=== PATIENT | female | born 1990 | race American Indian/Alaskan Native ===

== ENCOUNTER 2018-01-26 17:23 | Emergency (ER) | payer OTHER ==
[2018-01-26 18:53] VITALS: RESP 18; BMI 21.4
[2018-01-26] MEDS ORDERED: Methocarbamol 500 MG Tab PO STA (19:03)
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
[2018-01-26 20:11] VITALS: TEMP 98.1; O2SAT 99
[2018-01-26 21:08] VITALS: BP 120/80; PULSE 85
== END 2018-01-26 21:06 | disposition home or self-care (01) ==
LOC: ED 17:23
DX: S16.1XXA Strain of muscle, fascia and tendon at neck level, initial encounter (principal); S46.912A Strain of unspecified muscle, fascia and tendon at shoulder and upper arm level, left arm, initial encounter; Y08.89XA Assault by other specified means, initial encounter; Y92.512 Supermarket, store or market as the place of occurrence of the external cause; Y99.0 Civilian activity done for income or pay